=== PATIENT | female | born 1950 | race African-American/Black ===

== ENCOUNTER 2018-03-28 22:20 | Emergency (ER) | payer OTHER ==
[2018-03-28 22:50] VITALS: TEMP 97.9; BMI 21.5
--- NOTE | 2018-03-28 23:03 | PDOC ---
History of Present Illness - General Chief Complaint: Blood Pressure Problem Stated Complaint: ELEVATED BLOOD PRESSURE Time Seen by Provider: 03/28/18 22:52 - History of Present Illness Initial Comments: 03/28/18 23:01 Denies F/C, N/V, CP, SOB, abdominal pain, diarrhea, constipation, urinary complaints, weakness, lightheadedness, sensory changes. PMHx: as noted above ROS: as noted above SHx: Past History - Past Medical History Allergies/Adverse Reactions: Allergies Allergy/AdvReac Type Severity Reaction Status Date / Time haloperidol [From Haldol] Allergy Verified 03/28/18 22:32 Macrolide Antibiotics Allergy Verified 03/28/18 22:34 salicylates Allergy Verified 03/28/18 22:34 Home Medications: Ambulatory Orders Anastrozole [Arimidex -] 1 mg PO DAILY 03/28/18 Bupropion HCl [Bupropion Xl] 450 mg PO DAILY 03/28/18 Calcium Carb/Vitamin D3/Vit K1 [Calcium + D Soft Chewable Tab] 1 each PO BID Carbidopa/Levodopa *Cr* 50/200 [Sinemet *Cr* 50/200 -] 1 combo PO TID 03/28/18 Clonidine HCl [Catapres] 0.5 tab PO BID 03/28/18 Lamotrigine [Lamictal -] 200 mg PO DAILY 03/28/18 Lamotrigine [Lamictal -] 300 mg PO HS 03/28/18 Lorazepam [Ativan] 0.5 mg PO TID PRN 03/28/18 Magnesium Oxide [Mag-Ox -] 800 mg PO DAILY 03/28/18 Mvit,Calcium,Iron,Mins/A.acids [K-[place] Double Strength Capsule] 1 each PO DAILY 03/28/18 Oxybutynin Chloride [Ditropan -] 5 mg PO BID 03/28/18 Pantoprazole Sodium [Protonix -] 40 mg PO DAILY 03/28/18 Pravastatin Sodium 10 mg PO ASDIR 03/28/18 Sennosides/Docusate Sodium [Senna-S Tablet] 1 each PO BID 03/28/18 Valsartan [Diovan] 40 mg PO DAILY 03/28/18 Ziprasidone [Geodon] 80 mg PO ASDIR 03/28/18 Cancer: Yes (Lt breast) COPD: No Dementia: Yes HTN: Yes Hypercholesterolemia: Yes - Suicide/Smoking/Psychosocial Hx Smoking History: Unknown if ever smoked Review of Systems - Review of Systems Comments:: 03/28/18 23:02 GENERAL/CONSTITUTIONAL: No fever or chills. No weakness. HEAD, EYES, EARS, NOSE AND THROAT: No change in vision. No ear pain or discharge. No sore throat. CARDIOVASCULAR: No chest pain or shortness of breath RESPIRATORY: No cough, wheezing, or hemoptysis. GASTROINTESTINAL: No nausea, vomiting, diarrhea or constipation. GENITOURINARY: No dysuria, frequency, or change in urination. MUSCULOSKELETAL: No joint or muscle swelling or pain. No neck or back pain. SKIN: No rash NEUROLOGIC: No headache, vertigo, loss of consciousness, or change in strength/ sensation. ENDOCRINE: No increased thirst. No abnormal weight change HEMATOLOGIC/LYMPHATIC: No anemia, easy bleeding, or history of blood clots. ALLERGIC/IMMUNOLOGIC: No hives or skin allergy. *Physical Exam - Vital Signs Last Vital Signs Temp Pulse Resp BP Pulse Ox 97.9 F 83 18 160/104 99 03/28/18 22:26 03/28/18 22:26 03/28/18 22:26 03/28/18 22:26 03/28/18 22:26 - Physical Exam Comments: 03/28/18 23:02 GENERAL: Awake, alert, and fully oriented, in no acute distress HEAD: No signs of trauma, normocephalic, atraumatic EYES: PERRLA, EOMI, sclera anicteric, conjunctiva clear ENT: Auricles normal inspection, hearing grossly normal, nares patent, oropharynx clear without exudates. Moist mucosa NECK: Normal ROM, supple, no lymphadenopathy, JVD, or masses LUNGS: No distress, speaks full sentences, clear to auscultation bilaterally HEART: Regular rate and rhythm, normal S1 and S2, no murmurs, rubs or gallops, peripheral pulses normal and equal bilaterally. ABDOMEN: Soft, nontender, normoactive bowel sounds. No guarding, no rebound. No masses EXTREMITIES : Normal inspection, Normal range of motion, no edema. No clubbing or cyanosis. NEUROLOGICAL: Cranial nerves II through XII grossly intact. Normal speech, normal gait, no focal sensorimotor deficits SKIN: Warm, Dry, normal turgor, no rashes or lesions noted *DC/Admit/Observation/Transfer - Discharge Dispostion Decision to Admit order: No - Referrals - Patient Instructions Printed Discharge Instructions: DI for High Blood Pressure Additional Instructions: Please return to the emergency department with any new or worsening symptoms or concerns. Please follow up with your primary care physician within 72 hours. - Post Discharge Activity - Attestations Physician Attestion: 03/28/18 23:03 I attest to the information provided in this note.
--- NOTE | 2018-03-28 23:54 | PDOC ---
History of Present Illness - General Chief Complaint: Blood Pressure Problem Stated Complaint: ELEVATED BLOOD PRESSURE Time Seen by Provider: 03/28/18 22:52 History Source: Patient Exam Limitations: No Limitations - History of Present Illness Initial Comments: 03/28/18 23:48 [id number] w/ parkinson's disease and autonomic instability, lives in [place] and is visiting [facility] area presnets after episode of "leg weakness" on the train today and, when EMS arrived, found to have elevated BP 200/100. Pt states she frequently gets brief episodes of leg weakness 2/2 her parkinson's disease. Did NOT feel likghtheaded, no chest pain/sob. Pt was not concerned about either of her symptoms, but EMS prevailed upon her to come to the ER. SHe now feels fine and her legs are strong again. pt is leaving tomorrow on a Cruise with her sisters. Past History - Past Medical History Allergies/Adverse Reactions: Allergies Allergy/AdvReac Type Severity Reaction Status Date / Time haloperidol [From Haldol] Allergy Verified 03/28/18 22:32 Macrolide Antibiotics Allergy Verified 03/28/18 22:34 salicylates Allergy Verified 03/28/18 22:34 Home Medications: Ambulatory Orders Anastrozole [Arimidex -] 1 mg PO DAILY 03/28/18 Bupropion HCl [Bupropion Xl] 450 mg PO DAILY 03/28/18 Calcium Carb/Vitamin D3/Vit K1 [Calcium + D Soft Chewable Tab] 1 each PO BID Carbidopa/Levodopa *Cr* 50/200 [Sinemet *Cr* 50/200 -] 1 combo PO TID 03/28/18 Clonidine HCl [Catapres] 0.5 tab PO BID 03/28/18 Lamotrigine [Lamictal -] 200 mg PO DAILY 03/28/18 Lamotrigine [Lamictal -] 300 mg PO HS 03/28/18 Lorazepam [Ativan] 0.5 mg PO TID PRN 03/28/18 Magnesium Oxide [Mag-Ox -] 800 mg PO DAILY 03/28/18 Mvit,Calcium,Iron,Mins/A.acids [K-[place] Double Strength Capsule] 1 each PO DAILY 03/28/18 Oxybutynin Chloride [Ditropan -] 5 mg PO BID 03/28/18 Pantoprazole Sodium [Protonix -] 40 mg PO DAILY 03/28/18 Pravastatin Sodium 10 mg PO ASDIR 03/28/18 Sennosides/Docusate Sodium [Senna-S Tablet] 1 each PO BID 03/28/18 Valsartan [Diovan] 40 mg PO DAILY 03/28/18 Ziprasidone [Geodon] 80 mg PO ASDIR 03/28/18 Cancer: Yes (Lt breast) COPD: No Dementia: Yes HTN: Yes Hypercholesterolemia: Yes Comment:: 03/28/18 23:50 as per HPI - Suicide/Smoking/Psychosocial Hx Smoking History: Unknown if ever smoked Review of Systems - Review of Systems All Other Systems: Reviewed and Negative *Physical Exam - Vital Signs Last Vital Signs Temp Pulse Resp BP Pulse Ox 97.9 F 83 18 160/104 99 03/28/18 22:26 03/28/18 22:26 03/28/18 22:26 03/28/18 22:26 03/28/18 22:26 - Physical Exam Comments: 03/28/18 23:51 NAD, well appering EOMI, SUNDAY MMM, no JVD RRR no m/r/g CTABL, no w/r/r soft, NTND no edema gait WNL, 5/5 BLE A&O x 3, mood/affect WNL Medical Decision Making - Medical Decision Making 03/28/18 23:52 [id number] w/ episode of leg weakness and elevated BP today. Pt insists that these are both crhonic problems for her in the setting of her parkinson's dieseae and that her episode today was typical for her. She is not concerned by her symptoms and feels fine. no chest pain/syncope at any time. - EKG - BP has resolved wihtout intervention, now 144/90 on monitor - OK for DC after review of EKG. 03/28/18 23:53 *DC/Admit/Observation/Transfer Diagnosis at time of Disposition: Asymptomatic hypertension - Discharge Dispostion Disposition: HOME Condition at time of disposition: Good - Referrals - Patient Instructions Printed Discharge Instructions: DI for High Blood Pressure Additional Instructions: Please return to the emergency department with any new or worsening symptoms or concerns. Please follow up with your primary care physician within 72 hours. - Post Discharge Activity
[2018-03-29 00:18] VITALS: BP 144/97; PULSE 63
--- NOTE | 2018-03-29 17:48 | EKG ---
Test Reason : Blood Pressure : / mmHG Vent. Rate : 065 BPM Atrial Rate : 065 BPM P-R Int : 170 ms QRS Dur : 078 ms QT Int : 408 ms P-R-T Axes : 064 006 043 degrees QTc Int : 424 ms POOR DATA QUALITY, INTERPRETATION MAY BE ADVERSELY AFFECTED NORMAL SINUS RHYTHM POSSIBLE LEFT ATRIAL ENLARGEMENT BORDERLINE ECG NO PREVIOUS ECGS AVAILABLE Confirmed by ECTOR BLAND, RITU ([id number]) on 03/29/2018 5:48:14 PM Referred By: Confirmed By:RITU BARNEY MD
== END 2018-03-29 00:53 | disposition home or self-care (01) ==
LOC: JER 22:20
DX: I10 Essential (primary) hypertension (principal); G20 Parkinson's disease; F02.80 Dementia in other diseases classified elsewhere, unspecified severity, without behavioral disturbance, psychotic disturbance, mood disturbance, and anxiety; E78.00 Pure hypercholesterolemia, unspecified; Z85.3 Personal history of malignant neoplasm of breast
CPT/HCPCS: 93005; 93010; 99282-25